=== PATIENT | female | born 1990 | race Caucasian/White ===

== ENCOUNTER 2017-04-24 05:25 | Emergency (ER) | payer OTHER ==
[~2017-04-24] VITALS: Ht 165.1 cm; Wt 52.0 kg
[2017-04-24 05:41] VITALS: BP 134/83; PULSE 89; RESP 18; TEMP 98.1; O2SAT 97
--- NOTE | 2017-04-24 05:57 | PD ---
HPI Chief Complaint: OD/ Ingestion Time Seen by Provider: 05:36 Travel History International Travel<30 days: No Contact w/Intl Traveler<30days: No Traveled to known affect area: No History of Present Illness HPI The patient is a 26 year old female who presents to the [facility] emergency department with a history of reportedly using heroin and Xanax prior to arrival at approximately 5:10 AM. Within a few seconds the patient became unconscious according to her friend at the bedside. He reports that he was having difficulty telling if she was breathing. He called ambulance services. On ambulance services arrival the patient was noted to have pinpoint pupils with decreased respiratory effort, GCS of 3. The patient appeared to be cyanotic. The patient had IV access obtained and was given 0.4 mg of Narcan and 2 separate doses, at which point the patient became awake and alert and belligerent. The patient on arrival now is cheerful. She reports that she uses heroine usually occasionally, once every 4 months. She reports that she uses Xanax 1 time per week recreationally. She denies ever overdosing in the past. On review of systems otherwise, the patient denies having any recent fevers, worsening cough or congestion, neck pain, chest pain, shortness of breath, abdominal pain, vomiting, diarrhea, urinary symptoms, or neurologic symptoms. The patient reports that she does smoke between one and 3 packs of cigarettes per day. [facility] Past Medical History Narrative Medical The patient's past medical history is significant for IV drug use. Anxiety: Yes Depression: Yes ?: Unknown Past Surgical History Narrative Surgical The patient's past surgical history is significant for an appendectomy, bladder surgery as a child. Appendectomy: Yes Genitourinary Surgery: Yes Social History Alcohol Use: No Tobacco Use: Yes (1-3 packs per day) Substance Use: Yes (HEROIN, Xanax) Allergies-Medications (Allergen,Severity, Reaction): Coded Allergies: No Known Drug Allergies (Verified Allergy, Unknown, 04/24/17) Reported Meds & Prescriptions Reported Meds & Active Scripts Active No Active Prescriptions or Reported Medications Review of Systems Except as stated in HPI: all other systems reviewed are Neg General / Constitutional: No: Fever Eyes: No: Visual changes HENT: No: Headaches Cardiovascular: No: Chest Pain or Discomfort Respiratory: No: Shortness of Breath Gastrointestinal: No: Abdominal Pain Genitourinary: No: Dysuria Musculoskeletal: No: Pain Skin: No Rash Neurologic: Positive: Change in Mentation, No: Weakness, Focal Abnormalities, Slurred Speech, Sensory Disturbance Psychiatric: Positive: Substance Abuse, No: Depression Endocrine: No: Polydipsia Hematologic/Lymphatic: No: Easy Bruising Physical Exam Narrative General: The patient is a well-developed well-nourished male in no acute distress. Head and Neck exam: Head is normocephalic atraumatic. Eyes: EOMI, pupils are equal round and reactive to light. Nose: Midline septum with pink mucous membranes Mouth: Dentition unremarkable. Moist mucus membranes. Posterior oropharynx is not erythematous. No tonsillar hypertrophy. Uvula midline. Airway patent. Neck: No palpable lymphadenopathy. No nuchal rigidity. No thyromegaly. Cardiovascular: Regular rate and rhythm without murmurs, gallops, or rubs. Lungs: Clear to auscultation bilaterally. No wheezes, rhonchi, or rales. Abdomen: Soft, without tenderness to palpation in all 4 quadrants of the abdomen. No guarding, rebound, or rigidity. Normal bowel sounds are audible. No tenderness on palpation of McBurney's point. Extremities: No clubbing, cyanosis, or edema. 2+ pulses in all 4 extremities. No calf tenderness on palpation. Back: No spinous process tenderness to palpation. No costovertebral angle tenderness to palpation. Neurologic Exam: Grossly nonfocal. Skin Exam: No rash noted. Intact skin that is warm and dry. Data Data Last Documented VS Vital Signs Date Time Temp Pulse Resp B/P (MAP) Pulse Ox O2 Delivery O2 Flow Rate FiO2 04/24/17 06:48 96 Room Air 04/24/17 05:44 18 04/24/17 05:41 98.1 89 134/83 (100) Orders Orders Complete Blood Count With Diff (04/24/17 05:48) Comprehensive Metabolic Panel (04/24/17 05:48) Urinalysis - C+S If Indicated (04/24/17 05:48) Magnesium (Mg) (04/24/17 05:48) Chest, Single Ap (04/24/17 05:48) Iv Access Insert/Monitor (04/24/17 05:48) Ecg Monitoring (04/24/17 05:48) Oximetry (04/24/17 05:48) Ed Urine Pregnancytest Poc (04/24/17 05:48) Drug Screen, Random Urine (04/24/17 05:48) Alcohol (Ethanol) (04/24/17 05:48) Salicylates (Aspirin) (04/24/17 05:48) Tylenol (Acetaminophen) (04/24/17 05:48) Labs Laboratory Tests Test 04/24/17 05:59 White Blood Count 4.2 TH/MM3 Red Blood Count 4.05 MIL/MM3 Hemoglobin 12.6 GM/DL Hematocrit 37.3 % Mean Corpuscular Volume 92.0 FL Mean Corpuscular Hemoglobin 31.1 PG Mean Corpuscular Hemoglobin Concent 33.8 % Red Cell Distribution Width 12.6 % Platelet Count 202 TH/MM3 Mean Platelet Volume 9.1 FL Neutrophils (%) (Auto) 49.6 % Lymphocytes (%) (Auto) 40.8 % Monocytes (%) (Auto) 6.4 % Eosinophils (%) (Auto) 2.8 % Basophils (%) (Auto) 0.4 % Neutrophils # (Auto) 2.1 TH/MM3 Lymphocytes # (Auto) 1.7 TH/MM3 Monocytes # (Auto) 0.3 TH/MM3 Eosinophils # (Auto) 0.1 TH/MM3 Basophils # (Auto) 0.0 TH/MM3 CBC Comment DIFF FINAL Differential Comment Salicylates Level LESS THAN 1.7 MG/DL MDM Medical Decision Making Medical Screen Exam Complete: Yes Emergency Medical Condition: Yes Medical Record Reviewed: Yes Differential Diagnosis Accidental versus intentional heroin overdose, versus oversedation with polypharmacy Narrative Course During the course of the patients emergency department visit, the patients history, examination, and differential diagnosis were reviewed with the patient. The patient was placed on a fleet maintenance manager with oximetry and frequent blood pressure monitoring. The patient had IV access obtained and blood work sent for analysis. I instructed the patient that she will require 4 hours of observation for any recurrence of decreased level of consciousness or decreased respiratory rate as the Narcan begins to wear off as she could develop a recurrence of respiratory depression. An EKG was done on arrival. The patient' s EKG reveals a sinus rhythm heart rate of 84, no acute ST segment changes, QRS duration is 80 ms, QTC 414 ms per The patient was initially provided by mouth hydration. The patients laboratory studies were reviewed and remarkable for a CBC within normal limits, salicylate less than 1.7. Radiology studies were reviewed and remarkable for a chest x-ray that shows no evidence of acute cardiopulmonary disease. The patient's chemistry is pending at the conclusion of my shift. The patient' s case was checked out to the oncoming emergency physician to disposition the patient based on the conclusion of her workup. I anticipate that the patient will be discharged home after observation for any recurrence of respiratory depression or decline in mentation. Diagnosis Primary Impression: Accidental heroin overdose Qualified Codes: T40.1X1A - Poisoning by heroin, accidental (unintentional), initial encounter Scripts No Active Prescriptions or Reported Meds Anna Mckeon MD Apr 24, 2017 05:57
[2017-04-24 06:10] LABS: AUTOMATED NEUTROPHIL # 2.1 TH/MM3 (1.8-7.7); BASOPHIL % 0.4 % (0.0-2.0); EOSINOPHIL # 0.1 TH/MM3 (0-0.4); EOSINOPHIL % 2.8 % (0.0-4.0); HEMATOCRIT 37.3 % (35.0-46.0); HEMOGLOBIN 12.6 GM/DL (11.6-15.3); LYMPH % 40.8 % (9.0-44.0); LYMPHOCYTE # 1.7 TH/MM3 (1.0-4.8); MEAN CORPUSCULAR HEMOGLOBIN 31.1 PG (27.0-34.0); MEAN CORPUSCULAR HGB CONC 33.8 % (32.0-36.0); MEAN PLATELET VOLUME 9.1 FL (7.0-11.0); MONO % 6.4 % (0.0-8.0); MONOCYTE # 0.3 TH/MM3 (0-0.9); NEUT % 49.6 % (16.0-70.0); PLATELET COUNT 202 TH/MM3 (150-450); RED BLOOD COUNT 4.05 MIL/MM3 (4.00-5.30); RED CELL DISTRIBUTION WIDTH 12.6 % (11.6-17.2); WHITE BLOOD COUNT 4.2 TH/MM3 (4.0-11.0)
--- NOTE | 2017-04-24 06:30 | RADRPT ---
EXAM DATE/TIME: 04/24/2017 06:11 [place] COMPARISON: No previous studies available for comparison. INDICATIONS : Cough. Possible overdose. MEDICAL HISTORY : None. SURGICAL HISTORY : None. ENCOUNTER: Initial ACUITY: 1 day PAIN SCORE: 0/10 LOCATION: Bilateral chest FINDINGS: A single view of the chest demonstrates the lungs to be symmetrically aerated without evidence of mas s, infiltrate or effusion. The cardiomediastinal contours are unremarkable. Osseous structures are intact. CONCLUSION: 1. No acute cardiopulmonary disease. Isauro Duckworth MD on April 24, 2017 at 6:27 Board Certified Radiologist. This report was verified electronically.
[2017-04-24 06:48] VITALS: O2SAT 96
[2017-04-24 07:20] LABS: ALBUMIN 3.7 GM/DL (3.4-5.0); AST (GOT) 15 U/L (15-37); BICARBONATE 24.7 MEQ/L (21.0-32.0); BLOOD UREA NITROGEN 6 MG/DL (7-18); CALCIUM 7.7 MG/DL (8.5-10.1); CHLORIDE 109 MEQ/L (98-107); CREATININE 0.85 MG/DL (0.50-1.00); GLOMERULAR FILTRATION RATE 82 ML/MIN (>89); GLUCOSE,RANDOM 117 MG/DL (74-106); MAGNESIUM 2.3 MG/DL (1.5-2.5); SODIUM (NA) 144 MEQ/L (136-145)
[2017-04-24 07:23] LABS: ACETAMINOPHEN LESS THAN 2.0 MCG/ML (10.0-30.0); ALKALINE PHOSPHATASE 69 U/L (45-117); ALT (GPT) 13 U/L (10-53); TOTAL BILIRUBIN ADULT 0.3 MG/DL (0.2-1.0); TOTAL PROTEIN 7.1 GM/DL (6.4-8.2)
[2017-04-24 10:34] LABS: BACTERIA, URINE MOD /hpf; BILIRUBIN, URINE NEG (NEG); BLOOD, URINE NEG (NEG); GLUCOSE,URINE NEG (NEG); HYALINE CAST, URINE 1 /lpf (RARE); KETONE, URINE NEG (NEG); MUCUS URINE FEW /lpf (OCC); NITRITE,URINE POS (NEG); PH, URINE 5.5 (5.0-8.5); SQUAMOUS EPITHELIAL CELL URINE 7 /hpf (0-5); URINE COLOR YELLOW (YELLW/STRAW); URINE LEUKOCYTE ESTERASE LARGE (NEG)
[2017-04-24] MEDS ORDERED: MACR100C2 PO (11:07)
--- NOTE | 2017-04-24 11:07 | PD ---
Physical Exam Narrative GENERAL: Well-nourished, well-developed patient. SKIN: Warm and dry. HEAD: Normocephalic and atraumatic. EYES: No injection or drainage. ENT: No nasal drainage noted. NECK: Supple, trachea midline. CARDIOVASCULAR: Regular rate and rhythm RESPIRATORY: no increased effort. No accessory muscle use. EXTREMITIES: No edema. NEUROLOGICAL: Awake and alert. Motor and sensory grossly within normal limits. Normal speech. Data Data Last Documented VS Vital Signs Date Time Temp Pulse Resp B/P (MAP) Pulse Ox O2 Delivery O2 Flow Rate FiO2 04/24/17 06:48 96 Room Air 04/24/17 05:44 18 04/24/17 05:41 98.1 89 134/83 (100) Orders Orders Complete Blood Count With Diff (04/24/17 05:48) Comprehensive Metabolic Panel (04/24/17 05:48) Urinalysis - C+S If Indicated (04/24/17 05:48) Magnesium (Mg) (04/24/17 05:48) Chest, Single Ap (04/24/17 05:48) Iv Access Insert/Monitor (04/24/17 05:48) Ecg Monitoring (04/24/17 05:48) Oximetry (04/24/17 05:48) Ed Urine Pregnancytest Poc (04/24/17 05:48) Drug Screen, Random Urine (04/24/17 05:48) Alcohol (Ethanol) (04/24/17 05:48) Salicylates (Aspirin) (04/24/17 05:48) Tylenol (Acetaminophen) (04/24/17 05:48) Electrocardiogram (04/24/17 05:27) Urine Culture (04/24/17 10:10) Ed Discharge Order (04/24/17 11:07) Labs Laboratory Tests Test 04/24/17 05:48 04/24/17 05:59 04/24/17 10:10 Urine Opiates Screen POS Urine Barbiturates Screen NEG Urine Amphetamines Screen NEG Urine Benzodiazepines Screen POS Urine Cocaine Screen POS Urine Cannabinoids Screen POS White Blood Count 4.2 TH/MM3 Red Blood Count 4.05 MIL/MM3 Hemoglobin 12.6 GM/DL Hematocrit 37.3 % Mean Corpuscular Volume 92.0 FL Mean Corpuscular Hemoglobin 31.1 PG Mean Corpuscular Hemoglobin Concent 33.8 % Red Cell Distribution Width 12.6 % Platelet Count 202 TH/MM3 Mean Platelet Volume 9.1 FL Neutrophils (%) (Auto) 49.6 % Lymphocytes (%) (Auto) 40.8 % Monocytes (%) (Auto) 6.4 % Eosinophils (%) (Auto) 2.8 % Basophils (%) (Auto) 0.4 % Neutrophils # (Auto) 2.1 TH/MM3 Lymphocytes # (Auto) 1.7 TH/MM3 Monocytes # (Auto) 0.3 TH/MM3 Eosinophils # (Auto) 0.1 TH/MM3 Basophils # (Auto) 0.0 TH/MM3 CBC Comment DIFF FINAL Differential Comment Blood Urea Nitrogen 6 MG/DL Creatinine 0.85 MG/DL Random Glucose 117 MG/DL Total Protein 7.1 GM/DL Albumin 3.7 GM/DL Calcium Level 7.7 MG/DL Magnesium Level 2.3 MG/DL Alkaline Phosphatase 69 U/L Aspartate Amino Transf (AST/SGOT) 15 U/L Alanine Aminotransferase (ALT/SGPT) 13 U/L Total Bilirubin 0.3 MG/DL Sodium Level 144 MEQ/L Potassium Level 3.3 MEQ/L Chloride Level 109 MEQ/L Carbon Dioxide Level 24.7 MEQ/L Anion Gap 10 MEQ/L Estimat Glomerular Filtration Rate 82 ML/MIN Salicylates Level LESS THAN 1.7 MG/DL Acetaminophen Level LESS THAN 2.0 MCG/ML Ethyl Alcohol Level 100 MG/DL Urine Color YELLOW Urine Turbidity HAZY Urine pH 5.5 Urine Specific [place] 1.010 Urine Protein TRACE mg/dL Urine Glucose (UA) NEG mg/dL Urine Ketones NEG mg/dL Urine Occult Blood NEG Urine Nitrite POS Urine Bilirubin NEG Urine Urobilinogen LESS THAN 2.0 MG/DL Urine Leukocyte Esterase LARGE Urine RBC 2 /hpf Urine WBC 10 /hpf Urine Squamous Epithelial Cells 7 /hpf Urine Bacteria MOD /hpf Urine Hyaline Casts 1 /lpf Urine Mucus FEW /lpf Microscopic Urinalysis Comment CULTURE INDICATED MDM Supervised Visit with SANGEETHA: No Interpretation(s) CBC & BMP Diagram 04/24/17 05:59 Total Protein 7.1, Albumin 3.7, Calcium Level 7.7 L, Magnesium Level 2.3, Alkaline Phosphatase 69, Aspartate Amino Transf (AST/SGOT) 15, Alanine Aminotransferase (ALT/SGPT) 13, Total Bilirubin 0.3 UA with UTI Urine drug screen noted, alcohol level elevated Narrative Course Signed over to me to monitor in the ER and if still awake and appropriate to discharge after 4 hours, 11:15 patient is awake and alert, steady gait, clear speech, boyfriend at bedside and will watch over patient. She states this was her first time injecting and will not do it again and it was an accidental overdose. Lengthy discussion with patient and she understands the risks to using. Also discussed with her about other findings on urine tox and need to stop this as well. She'll be provided with an antibiotic for her urinary tract infection and given return instructions. They are in agreement to the plan Diagnosis Primary Impression: Accidental heroin overdose Qualified Codes: T40.1X1A - Poisoning by heroin, accidental (unintentional), initial encounter Additional Impression: UTI (urinary tract infection) Qualified Codes: N39.0 - Urinary tract infection, site not specified Patient Instructions: General Instructions Additional Instruction: AVOID ILLICIT DRUGS, limit alcohol use, follow with primary this week, return as needed Med/Other Pt SpecificInfo: Prescription(s) given Scripts Nitrofurantoin Monohydrate Macrocrystals (Macrobid) 100 Mg Cap 100 MG PO BID for Infection for 5 Days, #10 CAP 0 Refills Prov: Hillary Iraheta MD 04/24/17 Disposition: 01 DISCHARGE HOME Condition: Stable Hillary Iraheta MD Apr 24, 2017 11:07
[2017-04-24 11:35] VITALS: BP 122/88; PULSE 78; RESP 16; O2SAT 98
--- NOTE | 2017-04-24 14:11 | EKG ---
Date Performed: 04/24/2017 Time Performed: 05:27:42 PTAGE: 26 years EKG: Sinus rhythm NORMAL ECG NO PREVIOUS TRACING DOCTOR: Simone Whitney Interpretating Date/Time 04/24/2017 14:09:17
== END 2017-04-24 11:38 | disposition home or self-care (01) ==
LOC: NEPC 05:25
DX: T40.1X1A Poisoning by heroin, accidental (unintentional), initial encounter (principal); N39.0 Urinary tract infection, site not specified; B96.20 Unspecified Escherichia coli [E. coli] as the cause of diseases classified elsewhere; Z16.11 Resistance to penicillins; F12.90 Cannabis use, unspecified, uncomplicated; F13.90 Sedative, hypnotic, or anxiolytic use, unspecified, uncomplicated; F32.9 Major depressive disorder, single episode, unspecified; F17.210 Nicotine dependence, cigarettes, uncomplicated; Y90.5 Blood alcohol level of 100-119 mg/100 ml; Z72.89 Other problems related to lifestyle
CPT/HCPCS: 71045; 80053; 80307; 81001; 83735; 84703; 85025; 87077; 87086; 87186; 93005; 99285

== ENCOUNTER 2017-10-06 16:38 | Emergency (ER) | payer SELFPAY ==
[~2017-10-06] VITALS: Ht 165.1 cm; Wt 52.0 kg
[~2017-10-06 16:38] MED LIST: MACR100C2 PO
[2017-10-06 16:53] VITALS: BP 114/62; PULSE 108; RESP 18; TEMP 99.7; O2SAT 98
--- NOTE | 2017-10-06 17:39 | PD ---
HPI Chief Complaint: Skin Problem Time Seen by Provider: 17:38 Travel History International Travel<30 days: No Contact w/Intl Traveler<30days: No Traveled to known affect area: No History of Present Illness HPI 27-year-old female with long-standing history of IV drug use presents emergency department for evaluation of a reddened area on her proximal right upper extremity. Patient states she noticed this 2 days ago. This is proximal to an injection site. She wanted to be evaluated because she was recently hospitalized in [place] for an abscess in her left antecubital space. She had to go to the OR for I&D to be complete. Sutures are still in place. She states that she has not taken her antibiotics because she cannot afford them. She reports subjective fever and chills. She denies chest pain or tightness. She has no difficulty breathing. She does report a cough that she has had over the last couple of weeks. It is nonproductive. She denies any other symptoms at this time. [facility] Past Medical History Anxiety: Yes Depression: Yes ?: Not LMP: AUGUST 2017 Past Surgical History Appendectomy: Yes Genitourinary Surgery: Yes Social History Alcohol Use: No Tobacco Use: Yes (1-3 packs per day) Substance Use: Yes (HEROIN, Xanax) Allergies-Medications (Allergen,Severity, Reaction): Coded Allergies: No Known Drug Allergies (Verified Allergy, Unknown, 04/24/17) Reported Meds & Prescriptions Reported Meds & Active Scripts Active Ibuprofen 600 Mg Tab 600 Mg PO Q8HR PRN Keflex (Cephalexin) 500 Mg Cap 500 Mg PO Q6H 5 Days Bactrim DS (Sulfamethoxazole-Trimethoprim) 800-160 Mg Tab 1 Tab PO BID Review of Systems Except as stated in HPI: all other systems reviewed are Neg Physical Exam Narrative GENERAL: Well-nourished female patient, appears nontoxic and without distress. SKIN: Focused skin assessment warm/dry. 5 cm incision site on the left antecubital space with sutures intact. It is loosely approximated but appears to be healing. There is no active drainage or edema from the site. There is a 7 cm in diameter area of erythema on the medial aspect of the right proximal upper extremity just proximal to the antecubital space. There is no fluctuance. It is tender to palpate. Mildly warm. HEAD: Atraumatic. Normocephalic. EYES: Pupils equal and round. No scleral icterus. No injection or drainage. ENT: No nasal bleeding or discharge. Mucous membranes pink and moist. NECK: Trachea midline. No JVD. CARDIOVASCULAR: Tachycardic rate and rhythm. No murmur appreciated. RESPIRATORY: No accessory muscle use. Clear to auscultation. Breath sounds equal bilaterally. GASTROINTESTINAL: Abdomen soft, non-tender, nondistended. Hepatic and splenic margins not palpable. MUSCULOSKELETAL: No obvious deformities. No clubbing. No cyanosis. NEUROLOGICAL: Awake and alert. No obvious cranial nerve deficits. Motor grossly within normal limits. Normal speech. Data Data Last Documented VS Vital Signs Date Time Temp Pulse Resp B/P (MAP) Pulse Ox O2 Delivery O2 Flow Rate FiO2 10/06/17 19:50 10/06/17 19:11 94 18 100 Room Air 10/06/17 16:53 99.7 Orders Orders Sepsis Workup Initiated (10/06/17 ) Complete Blood Count With Diff (10/06/17 17:44) Comprehensive Metabolic Panel (10/06/17 17:44) Lactic Acid Sepsis Protocol (10/06/17 17:44) Blood Culture (10/06/17 17:44) Chest, Single Ap (10/06/17 17:44) Blood Glucose (10/06/17 17:44) Ecg Monitoring (10/06/17 17:44) Iv Access Insert/Monitor (10/06/17 17:44) Oximetry (10/06/17 17:44) Oxygen Administration (10/06/17 17:44) Sodium Chlor 0.9% 1000 Ml Inj (Ns 1000 M (10/06/17 17:44) Sodium Chlor 0.9% 1000 Ml Inj (Ns 1000 M (10/06/17 17:44) Us Soft Tissue (10/06/17 ) Clonidine (Catapres) (10/06/17 18:15) Metoclopramide Inj (Reglan Inj) (10/06/17 18:15) Diphenhydramine Inj (Benadryl Inj) (10/06/17 18:15) Sulfamet-Trimeth Ds 800-160 Mg (Bactrim (10/06/17 19:15) Cephalexin (Keflex) (10/06/17 19:15) Ibuprofen (Motrin) (10/06/17 19:15) Ed Discharge Order (10/06/17 19:39) Labs Laboratory Tests Test 10/06/17 18:02 White Blood Count 6.4 TH/MM3 Red Blood Count 4.06 MIL/MM3 Hemoglobin 12.2 GM/DL Hematocrit 36.0 % Mean Corpuscular Volume 88.7 FL Mean Corpuscular Hemoglobin 30.1 PG Mean Corpuscular Hemoglobin Concent 33.9 % Red Cell Distribution Width 14.7 % Platelet Count 286 TH/MM3 Mean Platelet Volume 7.8 FL Neutrophils (%) (Auto) 77.5 % Lymphocytes (%) (Auto) 11.8 % Monocytes (%) (Auto) 7.8 % Eosinophils (%) (Auto) 2.5 % Basophils (%) (Auto) 0.4 % Neutrophils # (Auto) 5.0 TH/MM3 Lymphocytes # (Auto) 0.8 TH/MM3 Monocytes # (Auto) 0.5 TH/MM3 Eosinophils # (Auto) 0.2 TH/MM3 Basophils # (Auto) 0.0 TH/MM3 CBC Comment DIFF FINAL Differential Comment Blood Urea Nitrogen 11 MG/DL Creatinine 0.62 MG/DL Random Glucose 99 MG/DL Total Protein 7.1 GM/DL Albumin 3.5 GM/DL Calcium Level 8.5 MG/DL Alkaline Phosphatase 62 U/L Aspartate Amino Transf (AST/SGOT) 18 U/L Alanine Aminotransferase (ALT/SGPT) 24 U/L Total Bilirubin 0.3 MG/DL Sodium Level 140 MEQ/L Potassium Level 4.0 MEQ/L Chloride Level 106 MEQ/L Carbon Dioxide Level 23.4 MEQ/L Anion Gap 11 MEQ/L Estimat Glomerular Filtration Rate 117 ML/MIN Lactic Acid Level 1.4 mmol/L [facility] Medical Decision Making Medical Screen Exam Complete: Yes Emergency Medical Condition: Yes Medical Record Reviewed: Yes Differential Diagnosis Abscess versus cellulitis versus phlebitis versus sepsis Narrative Course 27-year-old female presents emergency department for evaluation of a painful reddened area in the right proximal upper extremity. Patient appears well. She has low-grade temperature is tachycardic here. She last used heroin this morning. Patient has not been taking her antibiotic stating she cannot afford them. I reminded her that Bactrim is free at [facility]. Laboratory Tests Test 10/06/17 18:02 White Blood Count 6.4 TH/MM3 Red Blood Count 4.06 MIL/MM3 Hemoglobin 12.2 GM/DL Hematocrit 36.0 % Mean Corpuscular Volume 88.7 FL Mean Corpuscular Hemoglobin 30.1 PG Mean Corpuscular Hemoglobin Concent 33.9 % Red Cell Distribution Width 14.7 % Platelet Count 286 TH/MM3 Mean Platelet Volume 7.8 FL Neutrophils (%) (Auto) 77.5 % Lymphocytes (%) (Auto) 11.8 % Monocytes (%) (Auto) 7.8 % Eosinophils (%) (Auto) 2.5 % Basophils (%) (Auto) 0.4 % Neutrophils # (Auto) 5.0 TH/MM3 Lymphocytes # (Auto) 0.8 TH/MM3 Monocytes # (Auto) 0.5 TH/MM3 Eosinophils # (Auto) 0.2 TH/MM3 Basophils # (Auto) 0.0 TH/MM3 CBC Comment DIFF FINAL Differential Comment Blood Urea Nitrogen 11 MG/DL Creatinine 0.62 MG/DL Random Glucose 99 MG/DL Total Protein 7.1 GM/DL Albumin 3.5 GM/DL Calcium Level 8.5 MG/DL Alkaline Phosphatase 62 U/L Aspartate Amino Transf (AST/SGOT) 18 U/L Alanine Aminotransferase (ALT/SGPT) 24 U/L Total Bilirubin 0.3 MG/DL Sodium Level 140 MEQ/L Potassium Level 4.0 MEQ/L Chloride Level 106 MEQ/L Carbon Dioxide Level 23.4 MEQ/L Anion Gap 11 MEQ/L Estimat Glomerular Filtration Rate 117 ML/MIN Lactic Acid Level 1.4 mmol/L Last Impressions Chest X-Ray 10/06/17 1744 Signed Impressions: CONCLUSION: No active disease. Soft Tissue Ultrasound 10/06/17 0000 Signed Impressions: CONCLUSION: 1. Nonocclusive thrombus right cephalic vein without evidence for abscess. Findings are discussed with my attending physician. The cephalic vein is with a nonocclusive thrombus. Patient is encouraged to take NSAIDs, apply warm and cool compresses, and follow-up with primary care provider. She is counseled on drug cessation. She is given new prescriptions for antibiotics and reminded that Bactrim is free at [facility]. She agrees to return immediately with acute worsening symptoms. Diagnosis Primary Impression: Thrombosis of right cephalic vein Additional Impressions: IVDU (intravenous drug user) Nonadherence to medication Referrals: Primary Care Physician Patient Instructions: Acute Wound Care (GEN), Care For Your Stitches (ED), General Instructions, Superficial Thrombophlebitis (ED) Additional Instructions: Start taking her antibiotic tomorrow morning. Take it until it is all gone Bactrim is free at [facility] Follow-up with a primary care provider Seek outpatient resources for help with your opiate dependence Elevate the affected extremity Warm and cool compresses to the affected area Return immediately with acute worsening symptoms Med/Other Pt SpecificInfo: Prescription(s) given Scripts Ibuprofen (Ibuprofen) 600 Mg Tab 600 MG PO Q8HR Y for PAIN, #30 TAB 0 Refills Prov: Patricia Edwards 10/06/17 Cephalexin (Keflex) 500 Mg Cap 500 MG PO Q6H for Infection for 5 Days, #20 CAP 0 Refills Prov: Patricia Edwards 10/06/17 Sulfamethoxazole-Trimethoprim (Bactrim DS) 800-160 Mg Tab 1 TAB PO BID for Infection, #20 TAB 0 Refills Prov: Patricia Edwards 10/06/17 Disposition: 01 DISCHARGE HOME Condition: Stable Patricia Edwards Oct 06, 2017 17:39
[2017-10-06] MEDS ORDERED: SODIUM CHLOR 0.9% 1000 ML INJ 800 ML IV ONE (17:44)
[2017-10-06] MEDS ORDERED: SODIUM CHLOR 0.9% 1000 ML INJ 1,000 ML IV ONE (17:44)
[2017-10-06 18:14] VITALS: BP 100/55; PULSE 90; RESP 18; O2SAT 99
[2017-10-06] MEDS ORDERED: cloNIDine HCL 0.1 MG TAB PO ONE (18:15)
[2017-10-06] MEDS ORDERED: METOCLOPRAMIDE HCL 10 MG/2 ML VIAL IV PUSH ONE (18:15)
[2017-10-06] MEDS ORDERED: diphenhydrAMINE HCL 50 MG/ML VIAL IV PUSH ONE (18:15)
--- NOTE | 2017-10-06 18:21 | RADRPT ---
EXAM DATE: 10/06/2017 5:58 PM EDT AGE/SEX: 27 years / Female INDICATIONS: Fever with cough. CLINICAL DATA: This is the patient's initial encounter. Patient reports that signs and symptoms have been present for 1 day and indicates a pain score of 0/10. MEDICAL/SURGICAL HISTORY: None. None. COMPARISON: [facility], CHEST SINGLE AP, 04/24/2017. . FINDINGS: A single AP view of the chest demonstrates the lungs to be symmetrically aerated without evidence of mass, infiltrate or effusion. The cardiomediastinal contours are unremarkable. Osseous structures a re intact. CONCLUSION: No active disease. Electronically signed by: Alvin Garcia MD 10/06/2017 6:20 PM EDT
[2017-10-06 18:23] LABS: BASOPHIL % 0.4 % (0.0-2.0); EOSINOPHIL # 0.2 TH/MM3 (0-0.4); EOSINOPHIL % 2.5 % (0.0-4.0); HEMOGLOBIN 12.2 GM/DL (11.6-15.3); LYMPH % 11.8 % (9.0-44.0); LYMPHOCYTE # 0.8 TH/MM3 (1.0-4.8); MEAN CELL VOLUME 88.7 FL (80.0-100.0); MEAN CORPUSCULAR HEMOGLOBIN 30.1 PG (27.0-34.0); MEAN CORPUSCULAR HGB CONC 33.9 % (32.0-36.0); MEAN PLATELET VOLUME 7.8 FL (7.0-11.0); MONO % 7.8 % (0.0-8.0); MONOCYTE # 0.5 TH/MM3 (0-0.9); NEUT % 77.5 % (16.0-70.0); PLATELET COUNT 286 TH/MM3 (150-450); RED BLOOD COUNT 4.06 MIL/MM3 (4.00-5.30); RED CELL DISTRIBUTION WIDTH 14.7 % (11.6-17.2); WHITE BLOOD COUNT 6.4 TH/MM3 (4.0-11.0)
--- NOTE | 2017-10-06 18:44 | RADRPT ---
EXAM DATE: 10/06/2017 6:15 PM EDT AGE/SEX: 27 years / Female INDICATIONS: Abscess. CLINICAL DATA: This is the patient's initial encounter. Patient reports that signs and symptoms have been present for 4 - 6 days and indicates a pain score of 5/10. Location: Laterality: MEDICAL/SURGICAL HISTORY: . Depression. Anxiety. Substance abuse. Appendectomy. COMPARISON: No prior exams available for comparison. FINDINGS: There is nonocclusive thrombus in the right cephalic vein. No loculated fluid to suggest abscess. The re is some subcutaneous edema. CONCLUSION: 1. Nonocclusive thrombus right cephalic vein without evidence for abscess. Electronically signed by: Alvin Garcia MD 10/06/2017 6:43 PM EDT
[2017-10-06 18:54] LABS: ALBUMIN 3.5 GM/DL (3.4-5.0); AST (GOT) 18 U/L (15-37); BICARBONATE 23.4 MEQ/L (21.0-32.0); BLOOD UREA NITROGEN 11 MG/DL (7-18); CALCIUM 8.5 MG/DL (8.5-10.1); CHLORIDE 106 MEQ/L (98-107); CREATININE 0.62 MG/DL (0.50-1.00); GLOMERULAR FILTRATION RATE 117 ML/MIN (>89); GLUCOSE,RANDOM 99 MG/DL (74-106); SODIUM (NA) 140 MEQ/L (136-145)
[2017-10-06 18:55] LABS: ALT (GPT) 24 U/L (10-53)
[2017-10-06 18:57] LABS: ALKALINE PHOSPHATASE 62 U/L (45-117); TOTAL BILIRUBIN ADULT 0.3 MG/DL (0.2-1.0); TOTAL PROTEIN 7.1 GM/DL (6.4-8.2)
[2017-10-06 19:11] VITALS: BP 109/56; PULSE 94; RESP 18; O2SAT 100
[2017-10-06] MEDS ORDERED: CEPHALEXIN MONOHYDRATE 500 MG CAP PO ONE (19:15)
[2017-10-06] MEDS ORDERED: IBUPROFEN 600 MG TAB PO ONE (19:15)
[2017-10-06] MEDS ORDERED: SULFAMETHOXAZOLE-TRIMETHOPRIM DS 800-160 MG TAB PO ONE (19:15)
[2017-10-06] MEDS ORDERED: CEPH-460 PO (19:42)
[2017-10-06] MEDS ORDERED: BACT800T5 PO (19:42)
[2017-10-06] MEDS ORDERED: IBUP-232 PO (19:50)
--- NOTE | 2017-10-06 20:24 | PD ---
Data Data Last Documented VS Vital Signs Date Time Temp Pulse Resp B/P (MAP) Pulse Ox O2 Delivery O2 Flow Rate FiO2 10/06/17 19:50 10/06/17 19:11 94 18 100 Room Air 10/06/17 16:53 99.7 Orders Orders Sepsis Workup Initiated (10/06/17 ) Complete Blood Count With Diff (10/06/17 17:44) Comprehensive Metabolic Panel (10/06/17 17:44) Lactic Acid Sepsis Protocol (10/06/17 17:44) Blood Culture (10/06/17 17:44) Chest, Single Ap (10/06/17 17:44) Blood Glucose (10/06/17 17:44) Ecg Monitoring (10/06/17 17:44) Iv Access Insert/Monitor (10/06/17 17:44) Oximetry (10/06/17 17:44) Oxygen Administration (10/06/17 17:44) Sodium Chlor 0.9% 1000 Ml Inj (Ns 1000 M (10/06/17 17:44) Sodium Chlor 0.9% 1000 Ml Inj (Ns 1000 M (10/06/17 17:44) Us Soft Tissue (10/06/17 ) Clonidine (Catapres) (10/06/17 18:15) Metoclopramide Inj (Reglan Inj) (10/06/17 18:15) Diphenhydramine Inj (Benadryl Inj) (10/06/17 18:15) Sulfamet-Trimeth Ds 800-160 Mg (Bactrim (10/06/17 19:15) Cephalexin (Keflex) (10/06/17 19:15) Ibuprofen (Motrin) (10/06/17 19:15) Ed Discharge Order (10/06/17 19:39) Labs Laboratory Tests Test 10/06/17 18:02 White Blood Count 6.4 TH/MM3 Red Blood Count 4.06 MIL/MM3 Hemoglobin 12.2 GM/DL Hematocrit 36.0 % Mean Corpuscular Volume 88.7 FL Mean Corpuscular Hemoglobin 30.1 PG Mean Corpuscular Hemoglobin Concent 33.9 % Red Cell Distribution Width 14.7 % Platelet Count 286 TH/MM3 Mean Platelet Volume 7.8 FL Neutrophils (%) (Auto) 77.5 % Lymphocytes (%) (Auto) 11.8 % Monocytes (%) (Auto) 7.8 % Eosinophils (%) (Auto) 2.5 % Basophils (%) (Auto) 0.4 % Neutrophils # (Auto) 5.0 TH/MM3 Lymphocytes # (Auto) 0.8 TH/MM3 Monocytes # (Auto) 0.5 TH/MM3 Eosinophils # (Auto) 0.2 TH/MM3 Basophils # (Auto) 0.0 TH/MM3 CBC Comment DIFF FINAL Differential Comment Blood Urea Nitrogen 11 MG/DL Creatinine 0.62 MG/DL Random Glucose 99 MG/DL Total Protein 7.1 GM/DL Albumin 3.5 GM/DL Calcium Level 8.5 MG/DL Alkaline Phosphatase 62 U/L Aspartate Amino Transf (AST/SGOT) 18 U/L Alanine Aminotransferase (ALT/SGPT) 24 U/L Total Bilirubin 0.3 MG/DL Sodium Level 140 MEQ/L Potassium Level 4.0 MEQ/L Chloride Level 106 MEQ/L Carbon Dioxide Level 23.4 MEQ/L Anion Gap 11 MEQ/L Estimat Glomerular Filtration Rate 117 ML/MIN Lactic Acid Level 1.4 mmol/L MDM Supervised Visit with SANGEETHA: Yes Narrative Course The history, exam, and medical decision-making in the associated midlevel provider note were completed with my assistance. I reviewed and agree with the findings presented. I attest that I had a [id number] encounter with the patient on the same day, and personally performed and documented my assessment and findings in the medical record. *My assessment and Findings: This is a 27-year-old female who presents to the emergency department having swelling involving her right upper extremity. She has had abscesses in the past and was concerned that was what was going on. She has a fairly benign exam. Ultrasound demonstrates a DVT in the cephalic vein likely related to injection drug use. Patient will be discharged on anti- inflammatories and empiric antibiotic therapy for possible early cellulitis. Diagnosis Primary Impression: Thrombosis of right cephalic vein Additional Impressions: Nonadherence to medication IVDU (intravenous drug user) Referrals: Primary Care Physician Patient Instructions: General Instructions, Care For Your Stitches (ED), Superficial Thrombophlebitis (ED), Acute Wound Care (GEN) Departure Forms: Tests/Procedures Additional Instruction: Start taking her antibiotic tomorrow morning. Take it until it is all gone [facility] Follow-up with a primary care provider Seek outpatient resources for help with your opiate dependence Elevate the affected extremity Warm and cool compresses to the affected area Return immediately with acute worsening symptoms Scripts Ibuprofen (Ibuprofen) 600 Mg Tab 600 MG PO Q8HR Y for PAIN, #30 TAB 0 Refills Prov: Patricia Edwards 10/06/17 Cephalexin (Keflex) 500 Mg Cap 500 MG PO Q6H for Infection for 5 Days, #20 CAP 0 Refills Prov: Patricia Edwards 10/06/17 Sulfamethoxazole-Trimethoprim (Bactrim DS) 800-160 Mg Tab 1 TAB PO BID for Infection, #20 TAB 0 Refills Prov: Patricia Edwards 10/06/17 Disposition: 01 DISCHARGE HOME Condition: Stable Sena Dozier MD Oct 06, 2017 20:24
== END 2017-10-06 20:02 | disposition home or self-care (01) ==
LOC: NEPE 16:38
DX: I82.611 Acute embolism and thrombosis of superficial veins of right upper extremity (principal); Z91.14 Patient's other noncompliance with medication regimen; R05 Cough; F11.20 Opioid dependence, uncomplicated
CPT/HCPCS: 71045; 76999; 80053; 83605; 85025; 87040; 96361; 96374; 96375; 99285; J1200; J2765; J7030

== ENCOUNTER 2017-10-07 23:45 | Emergency (ER) | payer SELFPAY ==
[~2017-10-07] VITALS: Ht 170.2 cm; Wt 62.0 kg
[~2017-10-07 23:45] MED LIST changes: +BACT800T5 PO; +CEPH-460 PO; +IBUP-232 PO; -MACR100C2 PO
[2017-10-08] VITALS: BP 157/76; PULSE 112; RESP 18; TEMP 99; O2SAT 98
--- NOTE | 2017-10-08 00:43 | PD ---
HPI Chief Complaint: Skin Problem Time Seen by Provider: 00:14 Travel History International Travel<30 days: No Contact w/Intl Traveler<30days: No Traveled to known affect area: No History of Present Illness HPI 27-year-old woman presents emerged from complaining of discoloration and pain in her hands she injected heroin in her no other numbness tingling or weakness. No other complaints. History Past Medical History Narrative Medical IV drug use Tetanus Vaccination: Unknown Influenza Vaccination: No LMP: 09/14/17 Social History Alcohol Use: No Tobacco Use: Yes (1-3 packs per day) Allergies-Medications (Allergen,Severity, Reaction): Coded Allergies: No Known Drug Allergies (Verified Allergy, Unknown, 10/08/17) Reported Meds & Prescriptions Reported Meds & Active Scripts Active Ibuprofen 600 Mg Tab 600 Mg PO Q8HR PRN Keflex (Cephalexin) 500 Mg Cap 500 Mg PO Q6H 5 Days Bactrim DS (Sulfamethoxazole-Trimethoprim) 800-160 Mg Tab 1 Tab PO BID Review of Systems Except as stated in HPI: all other systems reviewed are Neg Physical Exam Narrative GENERAL: 27-year-old woman, nontoxic, no acute distress. SKIN: Warm and dry. CARDIOVASCULAR: Warm and well perfused. RESPIRATORY: Normal rate and effort. MUSCULOSKELETAL: Focused exam of the left upper extremity reveals bandage on her elbow from where she had a previous abscess drained. There is a small spot that she identifies the volar surface of her wrist was injected. A small dot there. Good pulses distally. Radial/ulnar/median nerve functions intact. Good capillary refill. Good pulses. NEUROLOGICAL: Awake and alert. No gross deficits. Data Data Last Documented VS Vital Signs Date Time Temp Pulse Resp B/P (MAP) Pulse Ox O2 Delivery O2 Flow Rate FiO2 10/08/17 00:00 99.0 112 18 157/76 (103) 98 MDM Medical Decision Making Medical Screen Exam Complete: Yes Emergency Medical Condition: Yes Differential Diagnosis Vasospasm, adverse effect of illicit drugs, infection, other Narrative Course Medical decision making 27-year-old woman presents emerged from the adverse effect of illicit drugs. Suspect because of vasospasm with some mottling. This is all resolved. She looks fine. Recommend cessation of illicit drug use. Outpatient follow-up. Diagnosis Primary Impression: Adverse effect of other narcotics, initial encounter Additional Instructions: Avoid illicit drugs. Return to the emergency department for any new or worsening symptoms. Med/Other Pt SpecificInfo: No Change to Meds Disposition: 01 DISCHARGE HOME Condition: Konstantin Barajas MD Oct 08, 2017 00:43
== END 2017-10-08 00:53 | disposition home or self-care (01) ==
LOC: NEPE 23:45
DX: T40.1X2A Poisoning by heroin, intentional self-harm, initial encounter (principal); M79.642 Pain in left hand; M79.641 Pain in right hand; F17.210 Nicotine dependence, cigarettes, uncomplicated
CPT/HCPCS: 99281